=== PATIENT | female | born 1955 | race Caucasian/White ===

== ENCOUNTER 2016-06-26 14:30 | Outpatient (RCR) | payer BC | END 2016-09-02 | disposition still patient (30) | LOC: WSC | DX: M47.897 Other spondylosis, lumbosacral region (principal) ==

== ENCOUNTER 2017-08-31 07:37 | Day surgery (SDC) | payer BC, OTHER ==
[~2017-08-31] VITALS: Ht 162.6 cm; Wt 102.3 kg
[2017-08-31] MEDS ORDERED: HCTZ 25MG TAB25 MG PO (08:00)
[2017-08-31] MEDS ORDERED: CYMBALTA 30MG30 MG PO (08:00)
[2017-08-31] MEDS ORDERED: PRINIVIL10 MG PO (08:01)
[2017-08-31] MEDS ORDERED: TOPROL XL 25MG25 MG PO (08:01)
[2017-08-31] MEDS ORDERED: MOBIC 7.5MG7.5 MG PO (08:02)
[2017-08-31 08:16] VITALS: BP 131/84; PULSE 90; TEMP 97.8
[2017-08-31 09:30] VITALS: BP 128/73; PULSE 96; TEMP 98.1
[2017-08-31 09:45] VITALS: BP 133/85; PULSE 86
[2017-08-31 10:00] VITALS: BP 135/70; PULSE 88
== END 2017-08-31 10:23 | disposition home or self-care (01) ==
LOC: SDCO 07:37
DX: Z12.11 Encounter for screening for malignant neoplasm of colon (principal); K64.0 First degree hemorrhoids; K58.9 Irritable bowel syndrome, unspecified; I10 Essential (primary) hypertension
CPT/HCPCS: OP; J2250; J2405; J3010; J7030

== ENCOUNTER → 2017-09-06 | Outpatient (CLI) | payer BC, OTHER ==
[~2017-09-06] MED LIST: CYMBALTA 30MG30 MG PO; HCTZ 25MG TAB25 MG PO; MOBIC 7.5MG7.5 MG PO; PRINIVIL10 MG PO; TOPROL XL 25MG25 MG PO
== END ==
LOC: MC.RAD 14:40
DX: Z12.31 Encounter for screening mammogram for malignant neoplasm of breast (principal)

== ENCOUNTER → 2019-06-28 | Outpatient (CLI) | payer BC, OTHER | LOC: MC.RAD 14:15 | DX: Z12.31 Encounter for screening mammogram for malignant neoplasm of breast (principal) ==

== ENCOUNTER → 2020-11-05 | Outpatient (CLI) | payer MEDICARE | LOC: MC.RAD | DX: Z12.31 Encounter for screening mammogram for malignant neoplasm of breast (principal) ==

== ENCOUNTER → 2021-12-12 | Outpatient (CLI) | payer MEDICARE | LOC: MC.RAD 09:11 | DX: Z12.31 Encounter for screening mammogram for malignant neoplasm of breast (principal) ==